=== PATIENT | female | born 1960 | race Caucasian/White ===

== ENCOUNTER → 2017-09-13 | Outpatient (CLI) | payer BC ==
[~2017-09-13] MED LIST: K + POTASSIUM20 MEQ PO; LISINOPRIL 10MG10 MG PO; PREMPRO 0.625 M1 TAB PO; PROTONIX 40MG T40 MG PO
[2017-09-13 13:55] LABS: HEMOGLOBIN 13.1 g/dL (12.2-16.2); LYMPH # 2.9 K/mm3 (0.7-4.5); LYMPH % 41.4 % (10-50.0)
[2017-09-13 14:34] LABS: BUN 15 mg/dL (7-18); GFR (ESTIMATED) 64 ML/MIN (59-)
== END ==
LOC: LAB 13:18
PROVIDERS: Physician Assistant
DX: I10 Essential (primary) hypertension (principal); E55.9 Vitamin D deficiency, unspecified